=== PATIENT | male | born 1990 | race Caucasian/White ===

== ENCOUNTER 2018-10-13 10:57 | Emergency (ER) | payer OTHER ==
[~2018-10-13] VITALS: Ht 185.4 cm; Wt 63.5 kg
[2018-10-13 11:51] LABS: ABSOLUTE BASOPHILS 0.1 thou/uL (0.0-0.2); BASOPHILS 0.4 %; MPV 8.9 fl. (7.2-11.1); NUCLEATED RBCS 0 /100WBC; PLATELET COUNT* 289 thou/uL (150-400)
[2018-10-13 11:56] LABS: ABSOLUTE EOSINOPHILS 0.1 thou/uL (0.0-0.7); ABSOLUTE LYMPHOCYTES 1.6 thou/uL (0.8-5.3); ABSOLUTE NEUTROPHILS 11.9 thou/uL (1.6-8.1); EOSINOPHILS 0.9 %; LYMPHOCYTES 10.9 %; MCHC 33.4 g/dL (28.0-37.0); MCV 86.9 fL (80.0-100.0); MONOCYTES 6.8 %; RBC 5.53 mil/uL (4.50-6.00); RDW-CV 14.2 % (10.5-14.5); WBC 14.7 thou/uL (4.0-11.0)
[2018-10-13 12:12] LABS: ALBUMIN 3.7 g/dL (3.4-5.0); CALCIUM 8.7 mg/dL (8.5-10.1); CREATININE 0.9 mg/dL (0.6-1.3); POTASSIUM 4.5 mmol/L (3.5-5.1); TOTAL BILIRUBIN 0.2 mg/dL (<0.1-1.0); TOTAL PROTEIN 7.6 g/dL (6.4-8.2)
[2018-10-13 12:13] LABS: URINE BILIRUBIN NEGATIVE (Negative); URINE BLOOD NEGATIVE (Negative); URINE CLARITY CLEAR; URINE COLOR YELLOW; URINE GLUCOSE-RANDOM NEGATIVE (Negative); URINE KETONES NEGATIVE (Negative); URINE LEUKOCYTES-REFLEX NEGATIVE (Negative); URINE NITRITE-REFLEX NEGATIVE (Negative); URINE PROTEIN NEGATIVE (Negative); URINE SPECIFIC GRAVITY 1.025 (1.005-1.030); URINE UROBILINOGEN 0.2 E.U./dl (0.2-1.0)
[2018-10-13] MEDS ORDERED: NAPROSYN500 MG PO (12:45)
[2018-10-13] MEDS ORDERED: ACETAMINOPHEN-1 EAC1 PO (12:45)
[2018-10-13 13:00] VITALS: BP 132/82
== END 2018-10-13 13:00 | disposition home or self-care (01) ==
LOC: M.ERS 10:57
PROVIDERS: Physician Assistant
DX: R10.32 Left lower quadrant pain (principal); N50.812 Left testicular pain; F17.210 Nicotine dependence, cigarettes, uncomplicated; J45.909 Unspecified asthma, uncomplicated